=== PATIENT | male | born 1975 | race Caucasian/White ===

== ENCOUNTER 2020-05-22 05:41 | Outpatient (RCR) | payer SELFPAY ==
[~2020-05-22] VITALS: Ht 185 cm; Wt 84.0 kg
[2020-05-23] MEDS ORDERED: LOSA100T57 PO ×2 (12:10)
== END 2020-05-23 12:15 | disposition home or self-care (01) ==
LOC: PREOP 05:41
PROVIDERS: ATTEND Specialist
DX: Z01.812 Encounter for preprocedural laboratory examination (principal); H26.9 Unspecified cataract; Z20.828 Contact with and (suspected) exposure to other viral communicable diseases
CPT/HCPCS: 87635

== ENCOUNTER 2020-05-25 06:04 | Day surgery (SDC) | payer SELFPAY ==
[~2020-05-25] VITALS: Ht 185 cm; Wt 84.0 kg
[~2020-05-25 06:04] MED LIST: LOSA100T57 PO
--- OUTSIDE RECORDS SUMMARY | 2020-05-25 06:08 | XMS REPORT ---
Author Author Woo HERNÁNDEZ [facility] Address [address] [place], [place] [address] Care Team Providers Care Ordnance Technician Name Role Phone MARTÍN HERNÁNDEZ PCP MARTÍN HERNÁNDEZ PreferredProvider Allergies and Adverse Reactions Name Reaction Notes NO KNOWN DRUG ALLERGIES Plan of Treatment Not available. Medications Active Name Start Date Estimated Completion Date SIG Co mments Fioricet 50-325-40 mg oral tablet 02/26/2012 take 1 tablet by oral route every 4 hours as needed not to exceed 6 tablets per 24hrs triamcinolone acetonide 0.1 % topical cream 06/07/2014 apply to affected area(s) by topical route 2 times a day hydroxyzine HCl 25 mg oral tablet 10/09/2014 take 1 tablet (25 mg) by oral route 4 times per day fluticasone 50 mcg/actuation nasal spray,suspension 02/07/2016 inhale 1 spray (50 mcg) in each nostril by intranasal route 2 times per day promethazine-codeine 6.25-10 mg/5 mL oral syrup 12/01/2016 take 5 milliliters by oral route every 4-6 hours as needed, not to exceed 30 mL in 24 hours Name Start Date Expiration Date SIG Comments prednisone 20 mg oral tablet 06/14/2013 06/22/2013 4X2 days 3X2 days 2X2 days 1X2 Days Zithromax Z-Ru 250 mg oral tablet 02/17/2014 02/22/2014 take 2 tablets (500 mg) by oral route once daily for 1 day then 1 tablet (250 mg) by oral route once daily for 4 days prednisone 20 mg oral tablet 10/09/2014 10/17/2014 4x2 days 3x2 days 2x2 days 1x2 days Problem List Description Status Onset Headache Active Arrhythmia Active Granuloma Annulare Active 06/07/2014 Vital Signs Date Time BP-Sys(mm[Hg] BP-Katarina(mm[Hg]) HR(bpm) RR(rpm) Temp WT HT HC BMI BSA BMI Percentile O2 Sat(%) 01/14/2018 1:15:00 PM 148 mmHg 72 mmHg 50 bpm 18 rpm 98.4 F 184 lbs 72 in 24.95 kg/m2 2.06 m2 98 % 12/01/2016 8:14:00 AM 130 mmHg 79 mmHg 78 bpm 18 rpm 98.5 F 182 lbs 72 in 24.6834 kg/m 2.0479 m 97 % 02/07/2016 7:28:00 AM 80 bpm 18 rpm 98 F 172 lbs 71 in 23.99 kg/m2 1.98 m2 98 % 10/09/2014 10:16:00 AM 120 mmHg 72 mmHg 100 bpm 20 rpm 98.6 F 177 lbs 71 in 24.6862 kg/m 2.0055 m 99 % 06/06/2014 3:58:00 PM 132 mmHg 72 mmHg 71 bpm 97.2 F 176.437 lbs 71 i n 24.61 kg/m2 2.00 m2 98 % 02/17/2014 10:46:00 AM 134 mmHg 72 mmHg 76 bpm 20 rpm 96.4 F 172 lbs 72 in 23.3272 kg/m 1.9908 m 98 % 06/14/2013 8:35:00 AM 140 mmHg 68 mmHg 50 bpm 16 rpm 96.9 F 171 lbs 72 in 23.19 kg/m2 1.99 m2 99 % 02/07/2013 4:25:00 PM 120 mmHg 70 mmHg 94 bpm 18 rpm 97 F 175 lbs 72 in 23.734 kg/m 2.0081 m 99 % 01/28/2013 2:45:00 PM 130 mmHg 78 mmHg 98 bpm 16 rpm 98.6 F 175 lbs 72 in 23.73 kg/m2 2.01 m2 99 % 02/26/2012 9:25:00 AM 112 mmHg 64 mmHg 78 bpm 173 lbs 72 in 23.4628 kg/m 1.9966 m 98 % Social History Name Description Comments Tobacco Former smoker Alcohol Use History of Procedures Date Ordered Description Order Status 02/07/2016 12:00 AM Decadron, Per [address] [facility]# [address]-75 Re viewed 02/07/2016 12:00 AM Depo-Medrol, Per [address] [facility]#8455-1052-18 Reviewed 02/07/2016 12:00 AM Rocephin [address] [facility]#2651-1728-25 Reviewe d 02/26/2012 12:00 AM THER/PROPH/DIAG INJ SC/IM Reviewed 02/26/2012 12:00 AM Decadron Inj.1mg-([facility]) [facility] #[id number] 30 Reviewed 02/26/2012 12:00 AM Depo-Medrol 80 Mg Im/St Krzysztof [facility] 0009-34 7501 Reviewed 12/01/2016 12:00 AM THER/PROPH/DIAG INJ SC/IM Reviewed 12/01/2016 12:00 AM Decadron 8mg Injection Reviewed 12/01/2016 12:00 AM Depo-Medrol 80mg Injection Reviewed 12/01/2016 12:00 AM Rocephin 1 gram Injection Reviewed 01/28/2013 12:00 AM RPR S/N/AX/GEN/TRNK 2.5CM/< Reviewed 02/17/2014 12:00 AM THER/PROPH/DIAG INJ SC/IM Reviewed 02/17/2014 12:00 AM Decadron, [address] [facility]# [address]-43 Review ed 02/17/2014 12:00 AM Depo-Medrol, Per [address] [facility]#3373-0755-34 Reviewed 10/09/2014 12:00 AM IMMUNIZATION ADMIN Reviewed 10/09/2014 12:00 AM THER/PROPH/DIAG INJ SC/IM Reviewed 10/09/2014 12:00 AM Decadron, Per [address] [facility]# [address]-10 Re viewed 10/09/2014 12:00 AM Depo-Medrol, Per [address] [facility]#2754-0003-93 Reviewed Results Summary Not available. History Of Immunizations Not available. History of Past Illness Name Date of Onset Comments Headache Arrhythmia Granuloma Annulare 06/07/2014 Headache Feb 26 2012 9:27AM Seasonal Allergies Feb 26 2012 9:27AM Arrhythmia Feb 26 2012 9:27AM Laceration 2nd digit right hand Feb 07 2013 4:12PM Laceration 2nd digit right hand Feb 07 2013 4:11PM Suture Removal Feb 07 2013 4:26PM Pain in foot, right Jun 14 2013 8:36AM Seasonal Allergies Feb 17 2014 10:46AM Respiratory System And Chest Symptoms Feb 17 2014 10:46AM Granuloma annulare Jun 06 2014 3:59PM Urticaria Oct 09 2014 10:17AM Acute pharyngitis, unspecified etiology Feb 07 2016 4:58PM Upper respiratory tract infection, unspecified type Feb 06 016 4:58PM Moderate Acute Nasal congestion Feb 07 2016 4:58PM Mild Acute Cough Dec 01 2016 8:17AM Acute bronchitis, unspecified organism Dec 01 2016 8:17AM Mild Acute Chest congestion Dec 01 2016 8:17AM Shortness of breath on exertion Jan 14 2018 1:16PM Cardiac dysrhythmia, unspecified Jan 14 2018 1:16PM Payers Insurance Name Company Name Plan Name Plan Number Policy Number Raj cy [id number] N/ A History of Encounters Visit Date Visit Type Provider 01/14/2018 Office visit MARTÍN ANDERSEN 12/01/2016 Office visit MARTÍN ANDERSEN 02/07/2016 Office visit MARTÍN ANDERSEN 10/09/2014 Office visit 10/09/2014 Office visit MARTÍN ANDERSEN 06/06/2014 Office visit MARTÍN ANDERSEN 02/17/2014 Office visit MARTÍN ANDERSEN 06/14/2013 Office visit MARTÍN ANDERSEN 02/07/2013 Office visit MARTÍN ANDERSEN 01/28/2013 Office visit MARTÍN ANDERSEN 02/26/2012 Office visit MARTÍN ANDERSEN
--- OUTSIDE RECORDS SUMMARY | 2020-05-25 06:08 | XMS REPORT ---
Author Author Woo HERNÁNDEZ [facility] Address [address] [place], [place] [address] Care Team Providers Care Chronic Specialist Name Role Phone MARTÍN HERNÁNDEZ PCP MARTÍN [...] to exceed 30 mL in 24 hours Bystolic 5 mg oral tablet 02/08/2018 05/09/2018 take 1 tablet (5 mg) by oral route once daily for 30 days Name Start Date Expiration Date SIG Comments [...] Active Arrhythmia Active Granuloma Annulare Active 06/07/2014 Palpitations Active 02/20/2018 Essential hypertension Active 02/20/2018 Vital Signs Date Time BP-Sys(mm[Hg] BP-Katarina(mm[Hg]) HR(bpm) RR(rpm) Temp WT HT HC BMI BSA BMI Percentile O2 Sat(%) 02/16/2018 7:37:00 AM 118 mmHg 70 mmHg 68 bpm 18 rpm 185 lbs 72 in 25.0903 kg/m 2.0647 m 98 % 02/08/2018 2:03:00 PM 152 mmHg 96 mmHg 78 bpm 18 rpm 99.1 F 184 lbs 96 % 01/14/2018 1:15:00 PM 148 mmHg 72 mmHg 50 bpm 18 rpm 98.4 F 184 lbs 72 in 24.9546 kg/m 2.0591 m 98 % 12/01/2016 8:14:00 AM 130 mmHg 79 mmHg 78 bpm 18 rpm 98.5 F 182 lbs 72 in 24.68 kg/m2 2.05 m2 97 % 02/07/2016 7:28:00 AM 80 bpm [...] 02/07/2016 12:00 AM Decadron, Per 1 Mg [facility]# [address]-10 Re viewed 02/07/2016 12:00 AM Depo-Medrol, Per 80 Mg [facility]#0977-6570-42 Reviewed 02/07/2016 12:00 AM Rocephin 1 gram [facility]#9986-7877-41 Reviewe d 02/26/2012 12:00 AM THER/PROPH/DIAG INJ SC/IM Reviewed 02/26/2012 12:00 AM Decadron Inj.1mg-([facility]) [facility] #[id number] 30 Reviewed 02/26/2012 12:00 AM Depo-Medrol 80 Mg Im/[facility] Krz[facility] 0009-34 7501 Reviewed 12/01/2016 12:00 AM THER/PROPH/DIAG INJ SC/IM Reviewed 12/01/2016 12:00 AM Decadron 8mg Injection Reviewed 12/01/2016 12:00 AM Depo-Medrol 80mg Injection Reviewed 12/01/2016 12:00 AM Rocephin 1 gram Injection Reviewed 02/08/2018 12:00 AM ECHO EXAM OF ABDOMEN Returned 02/10/2018 12:00 AM HEPATOBILIARY SYSTEM IMAGING Returned 02/10/2018 12:00 AM ACUTE HEPATITIS PANEL Returned 01/28/2013 12:00 AM RPR S/N/AX/GEN/TRNK 2.5CM/< Reviewed 02/17/2014 12:00 AM THER/PROPH/DIAG INJ SC/IM Reviewed 02/17/2014 12:00 AM Decadron, 8 Mg [facility]# [address]-41 Review ed 02/17/2014 12:00 AM Depo-Medrol, Per 80 Mg [facility]#6981-4904-25 Reviewed 10/09/2014 12:00 AM IMMUNIZATION ADMIN Reviewed 10/09/2014 12:00 AM THER/PROPH/DIAG INJ SC/IM Reviewed 10/09/2014 12:00 AM Decadron, Per 1 Mg [facility]# [address]-35 Re viewed 10/09/2014 12:00 AM Depo-Medrol, Per 80 Mg [facility]#6895-7357-22 Reviewed Results Summary Not available. History Of Immunizations Not available. History of Past Illness Name Date of Onset Comments Headache Arrhythmia Granuloma Annulare 06/07/2014 Palpitations 02/20/2018 Essential hypertension 02/20/2018 Headache Feb 26 2012 9:27AM Seasonal Allergies [...] respiratory tract infection, unspecified type Feb 06 4:58PM Moderate Acute Nasal congestion Feb 07 2016 4:58PM Mild Acute Cough Dec 01 2016 8:17AM Acute bronchitis, unspecified organism Dec 01 2016 8:17AM Mild Acute Chest congestion Dec 01 2016 8:17AM Shortness of breath on exertion Jan 14 2018 1:16PM Cardiac dysrhythmia, unspecified Jan 14 2018 1:16PM Right upper quadrant abdominal pain Feb 08 2018 1:42PM Right upper quadrant abdominal pain Feb 10 2018 3:47PM Essential hypertension Feb 16 2018 4:16PM Palpitations Feb 16 2018 4:16PM Essential hypertension Feb 08 2018 2:03PM Palpitations Feb 08 2018 2:03PM Right upper quadrant pain Feb 08 2018 2:03PM Payers Insurance Name Company Name Plan Name Plan Number Policy Number Raj Group Number Start Date BCBS [facility] [id number] N/ A History of Encounters Visit Date Visit Type Provider 02/16/2018 Office visit MARTÍN ANDERSEN 02/08/2018 Office visit MARTÍN ANDERSEN 01/14/2018 [facility] Aisha Kaba MD 01/14/2018 Office visit MARTÍN ANDERSEN 12/01/2016 Office visit MARTÍN ANDERSEN 02/07/2016 Office visit MARTÍN ANDERSEN 10/09/2014 Office visit 10/09/2014 Office visit MARTÍN ANDERSEN 06/06/2014 Office visit MARTÍN HERNÁNDEZ PA 02/17/2014 Office visit MARTÍN ANDERSEN 06/14/2013 Office visit MARTÍN ANDERSEN 02/07/2013 Office visit MARTÍN HERNÁNDEZ PA 01/28/2013 Office visit MARTÍN ANDERSEN 02/26/2012 Office visit MARTÍN ANDERSEN
--- OUTSIDE RECORDS SUMMARY | 2020-05-25 06:08 | XMS REPORT ---
Author Author Woo HERNÁNDEZ [facility] ou Address [address] [place], [place] [address] Care Team Providers Care Guinea Pig Breeder Name Role Phone MARTÍN HERNÁNDEZ PCP MATRÍN HERNÁNDEZ PreferredProvider Allergies and Adverse Reactions Name Reaction Notes NO KNOWN DRUG ALLERGIES Plan of Treatment Not available. Medications Name Start Date Expiration Date SIG Comments [...] days 3x2 days 2x2 days 1x2 days Bystolic 5 mg oral tablet 02/08/2018 05/09/2018 take 1 tablet (5 mg) by oral route once daily for 30 days Discontinued Name Start Date Discontinued Date SIG Comments Fioricet 50-325-40 mg oral tablet 02/26/2012 03/12/2020 take 1 tablet by oral route every 4 hours as needed not to exceed 6 tablets per 24hrs triamcinolone acetonide 0.1 % topical cream 06/07/20142019 apply to affected area(s) by topical route 2 times a day hydroxyzine HCl 25 mg oral tablet 10/09/2014 03/12/2020 take 1 tablet (25 mg) by oral route 4 times per day fluticasone 50 mcg/actuation nasal spray,suspension 02/07/2016 03/12/2020 inhale 1 spray (50 mcg) in each nostril by intranasal route 2 times per day promethazine-codeine 6.25-10 mg/5 mL oral syrup 12/01/2016 03/12/2020 take 5 milliliters by oral route every 4-6 hours as needed, not to exceed 30 mL in 24 hours Problem List Description Status Onset Headache Active Arrhythmia Active Granuloma Annulare Active 06/07/2014 Palpitations Active 02/20/2018 Essential hypertension Active 02/20/2018 Vital Signs Date Time BP-Sys(mm[Hg] BP-Katarina(mm[Hg]) HR(bpm) RR(rpm) Temp WT HT HC BMI BSA BMI Percentile O2 Sat(%) 03/09/2020 7:36:00 AM 150 mm[Hg] 98 mm[Hg] 86 {beats}/min 16 rpm 98.6 F 187.5 lbs 72 in 25.4293 kg/m2 2.0786 m2 97 % 02/16/2018 7:37:00 AM 118 mm[Hg] 70 mm[Hg] 68 {beats}/min 18 rpm 18 5 lbs 72 in 25.09 kg/m2 2.06 m2 98 % 02/08/2018 2:03:00 PM 152 mm[Hg] 96 mm[Hg] 78 {beats}/min 18 rpm 99.1 F 184 lbs 96 % 01/14/2018 1:15:00 PM 148 mm[Hg] 72 mm[Hg] 50 {beats}/min 18 rpm 98.4 F 184 lbs 72 in 24.95 kg/m2 2.06 m2 98 % 12/01/2016 8:14:00 AM 130 mm[Hg] 79 mm[Hg] 78 {beats}/min 18 rpm 98.5 F 182 lbs 72 in 24.6834 kg/m2 2.0479 m2 97 % 02/07/2016 7:28:00 AM 80 {beats}/min 18 rpm 98 F 172 lbs 71 in 23.99 kg/m2 1.98 m2 98 % 10/09/2014 10:16:00 AM 120 mm[Hg] 72 mm[Hg] 100 {beats}/min 20 rpm 98.6 F 177 lbs 71 in 24.6862 kg/m2 2.0055 m2 99 % 06/06/2014 3:58:00 PM 132 mm[Hg] 72 mm[Hg] 71 {beats}/min 97.2 F 176.437 lbs 71 in 24.61 kg/m2 2.00 m2 98 % 02/17/2014 10:46:00 AM 134 mm[Hg] 72 mm[Hg] 76 {beats}/min 20 rpm 96.4 F 172 lbs 72 in 23.3272 kg/m2 1.9908 m2 98 % 06/14/2013 8:35:00 AM 140 mm[Hg] 68 mm[Hg] 50 {beats}/min 16 rpm 96.9 F 171 lbs 72 in 23.19 kg/m2 1.99 m2 99 % 02/07/2013 4:25:00 PM 120 mm[Hg] 70 mm[Hg] 94 {beats}/min 18 rpm 97 F 175 lbs 72 in 23.734 kg/m2 2.0081 m2 99 % 01/28/2013 2:45:00 PM 130 mm[Hg] 78 mm[Hg] 98 {beats}/min 16 rpm 98.6 F 175 lbs 72 in 23.73 kg/m2 2.01 m2 99 % 02/26/2012 9:25:00 AM 112 mm[Hg] 64 mm[Hg] 78 {beats}/min 173 l bs 72 in 23.4628 kg/m2 1.9966 m2 98 % Social History Name Description Comments Tobacco Former smoker Alcohol Use History of Procedures Date Ordered Description Order Status 02/07/2016 12:00 AM Decadron, Per 1 Mg [facility]# [address]-73 Re viewed 02/07/2016 12:00 AM Depo-Medrol, Per 80 Mg [facility]#5272-3828-75 Reviewed 02/07/2016 12:00 AM Rocephin 1 gram [facility]#5166-7482-44 Reviewe d 02/26/2012 12:00 AM THER/PROPH/DIAG INJ SC/IM Reviewed 02/26/2012 12:00 AM Decadron Inj.1mg-([facility]) [facility] #[id number] 30 Reviewed 02/26/2012 12:00 AM Depo-Medrol 80 Mg Im/St Krzyszto[facility] 0009-34 7501 Reviewed 12/01/2016 12:00 AM THER/PROPH/DIAG [...] Reviewed 02/17/2014 12:00 AM Decadron, 8 Mg [place]# [address]-59 Review ed 02/17/2014 12:00 AM Depo-Medrol, Per 80 Mg [facility]#2354-6865-05 Reviewed 10/09/2014 12:00 AM IMMUNIZATION ADMIN Reviewed 10/09/2014 12:00 AM THER/PROPH/DIAG INJ SC/IM Reviewed 10/09/2014 12:00 AM Decadron, Per 1 Mg [place]# [address]-37 Re viewed 10/09/2014 12:00 AM Depo-Medrol, Per 80 Mg [place]#9269-6193-15 Reviewed Results Summary Not available. History Of [...] respiratory tract infection, unspecified type Feb 06 2 016 4:58PM Moderate Acute Nasal congestion Feb [...] upper quadrant pain Feb 08 2018 2:03PM Viral hepatitis A without hepatic coma Feb 16 2018 4:16PM Fatty liver, alcoholic Feb 16 2018 4:16PM Essential hypertension Mar 09 2020 7:37AM Medication management Mar 09 2020 7:37AM Payers Insurance Name Company Name Plan Name Plan Number Policy Number Raj cy Group Number Start Date BCBS [facility] [id number] N/ A History of Encounters Visit Date Visit Type Provider 03/09/2020 Office visit MARTÍN ANDERSEN 02/16/2018 Office visit MARTÍN ANDERSEN 02/08/2018 Office visit MARTÍN ANDERSEN 01/14/2018 [facility] Marino Kaba MD 01/14/2018 Office visit MARTÍN ANDERSEN 12/01/2016 Office visit MARTÍN ANDERSEN 02/07/2016 Office visit MARTÍN ANDERSEN 10/09/2014 Office visit 10/09/2014 Office visit MARTÍN ANDERSEN 06/06/2014 Office visit MARTÍN ANDERSEN 02/17/2014 Office visit MARTÍN ANDERSEN 06/14/2013 Office visit MARTÍN ANDERSEN 02/07/2013 Office visit MARTÍN ANDERSEN 01/28/2013 Office visit MARTÍN ANDERSEN 02/26/2012 Office visit MARTÍN ANDERSEN
--- OUTSIDE RECORDS SUMMARY | 2020-05-25 06:08 | XMS REPORT ---
Author Author Woo HERNÁNDEZ Organization [facility] Address [address] [place], [place] [address] Care Team Providers Care Racquet Maker Name Role Phone MARTÍN HERNÁNDEZ PCP MARTÍN HERNÁNDEZ PreferredProvider Allergies and Adverse Reactions Name Reaction Notes NO KNOWN DRUG ALLERGIES Plan of Treatment Planned Activity Comments Planned Date Planned Time Plan/Goal [facility] ([facility]) 02/08/2018 12:00 AM Medications Active Name Start Date Estimated Completion [...] 02/07/2016 12:00 AM Decadron, Per 1 Mg [facility]# [address]-70 Re viewed 02/07/2016 12:00 AM Depo-Medrol, Per 80 Mg [facility]#3066-9305-58 Reviewed 02/07/2016 12:00 AM Rocephin 1 gram [facility]#3255-2408-06 Reviewe d 02/26/2012 12:00 AM THER/PROPH/DIAG INJ SC/IM Reviewed 02/26/2012 12:00 AM Decadron Inj.1mg-([facility]) [facility] #[id number] 30 Reviewed 02/26/2012 12:00 AM Depo-Medrol 80 Mg Im/St Krzysz[facility] 0009-34 7501 Reviewed 12/01/2016 12:00 AM THER/PROPH/DIAG INJ SC/IM Reviewed 12/01/2016 12:00 AM Decadron 8mg Injection Reviewed 12/01/2016 12:00 AM Depo-Medrol 80mg Injection Reviewed 12/01/2016 12:00 AM Rocephin 1 gram Injection Reviewed 01/28/2013 12:00 AM RPR S/N/AX/GEN/TRNK 2.5CM/< Reviewed 02/17/2014 12:00 AM THER/PROPH/DIAG INJ SC/IM Reviewed 02/17/2014 12:00 AM Decadron, 8 Mg [facility]# [address]-59 Review ed 02/17/2014 12:00 AM Depo-Medrol, Per 80 Mg [facility]#9597-0813-51 Reviewed 10/09/2014 12:00 AM IMMUNIZATION ADMIN Reviewed 10/09/2014 12:00 AM THER/PROPH/DIAG INJ SC/IM Reviewed 10/09/2014 12:00 AM Decadron, Per 1 Mg [facility]# [address]-63 Re viewed 10/09/2014 12:00 AM Depo-Medrol, Per 80 Mg [facility]#7496-4099-04 Reviewed Results Summary Not available. History Of [...] quadrant abdominal pain Feb 08 2018 1:42PM Payers Insurance Name Company Name Plan Name Plan Number Policy Number Raj cy Group Number Start Date BCBS Bcbs [facility] [id number] N/ A History of Encounters Visit Date Visit Type Provider 02/08/2018 Office visit MARTÍN ANDERSEN 01/14/2018 [facility] Marino Kaba MD 01/14/2018 Office visit MARTÍN ANDERSEN 12/01/2016 Office visit MARTÍN ANDERSEN 02/07/2016 Office visit MARTÍN ANDERSEN 10/09/2014 Office visit 10/09/2014 Office visit MARTÍN ANDERSEN 06/06/2014 Office visit MARTÍN ANDERSEN 02/17/2014 Office visit MARTÍN ANDERSEN 06/14/2013 Office visit MARTÍN ANDERSEN 02/07/2013 Office visit MARTÍN ANDERSEN 01/28/2013 Office visit MARTÍN ANDERSEN 02/26/2012 Office visit MARTÍN ANDERSEN
--- OUTSIDE RECORDS SUMMARY | 2020-05-25 06:09 | XMS REPORT ---
Author Author Woo HERNÁNDEZ [facility] oup Address [address] [place], [place] [address] Care Team Providers Care Labor And Delivery Registered Nurse Name Role Phone MARTÍN HERNÁNDEZ PCP MARTÍN HERNÁNDEZ PreferredProvider Allergies and Adverse Reactions Name Reaction Notes NO KNOWN DRUG ALLERGIES Plan of Treatment Planned Activity Comments Planned Date Planned Time Plan/Goal Hepatobiliary scan 02/10/2018 12:00 AM HEPATITIS A AB 02/10/2018 12:00 AM Medications Active Name Start Date [...] HC BMI BSA BMI Percentile O2 Sat(%) 02/08/2018 2:03:00 PM 152 mmHg 96 mmHg [...] rpm 98 F 172 lbs 71 in 2 3.9889 kg/m 1.9769 m 98 % 10/09/2014 10:16:00 AM 120 mmHg 72 mmHg 100 bpm 20 rpm 98.6 F 177 lbs 71 in 24.69 kg/m2 2.01 m2 99 % 06/06/2014 3:58:00 PM 132 mmHg 72 mmHg 71 bpm 97.2 F 176.437 lbs 71 i n 24.6078 kg/m 2.0023 m 98 % 02/17/2014 10:46:00 AM 134 mmHg 72 mmHg 76 bpm 20 rpm 96.4 F 172 lbs 72 in 23.33 kg/m2 1.99 m2 98 % 06/14/2013 8:35:00 AM 140 mmHg 68 mmHg 50 bpm 16 rpm 96.9 F 171 lbs 72 in 23.1915 kg/m 1.985 m 99 % 02/07/2013 4:25:00 PM 120 mmHg 70 mmHg 94 bpm 18 rpm 97 F 175 lbs 72 in 23.73 kg/m2 2.01 m2 99 % 01/28/2013 2:45:00 PM 130 mmHg 78 mmHg 98 bpm 16 rpm 98.6 F 175 lbs 72 in 23.734 kg/m 2.0081 m 99 % 02/26/2012 9:25:00 AM 112 mmHg 64 mmHg 78 bpm 173 lbs 72 in 23.46 kg/m2 2.00 m2 98 % Social History Name Description Comments Tobacco Former smoker Alcohol Use History of Procedures Date Ordered Description Order Status 02/07/2016 12:00 AM Decadron, Per 1 Mg [facility]# [address]-94 Re viewed 02/07/2016 12:00 AM Depo-Medrol, Per 80 Mg [facility]#1988-37[address]-41 Reviewed 02/07/2016 12:00 AM Rocephin 1 gram [facility]#5946-4033-36 Reviewe d 02/26/2012 12:00 AM THER/PROPH/DIAG INJ SC/IM Reviewed 02/26/2012 12:00 AM Decadron Inj.1mg-(St.K[facility]ys[facility]to[facility]) [facility] #[id number] 30 Reviewed 02/26/2012 12:00 AM Depo-Medrol 80 Mg Im/St Krzyszto[facility] 0009-34 7501 Reviewed 12/01/2016 12:00 AM THER/PROPH/DIAG INJ SC/IM Reviewed 12/01/2016 12:00 AM Decadron 8mg Injection Reviewed 12/01/2016 12:00 AM Depo-Medrol 80mg Injection Reviewed 12/01/2016 12:00 AM Rocephin 1 gram Injection Reviewed 02/08/2018 12:00 AM ECHO EXAM OF ABDOMEN Returned 01/28/2013 12:00 AM RPR S/N/AX/GEN/TRNK 2.5CM/< Reviewed 02/17/2014 12:00 AM THER/PROPH/DIAG INJ SC/IM Reviewed 02/17/2014 12:00 AM Decadron, 8 Mg [facility]# [address]-71 Review ed 02/17/2014 12:00 AM Depo-Medrol, Per 80 Mg [facility]#9795-8531-42 Reviewed 10/09/2014 12:00 AM IMMUNIZATION ADMIN Reviewed 10/09/2014 12:00 AM THER/PROPH/DIAG INJ SC/IM Reviewed 10/09/2014 12:00 AM Decadron, Per 1 Mg [facility]# [address]-00 Re viewed 10/09/2014 12:00 AM Depo-Medrol, Per 80 Mg [facility]#2664-6166-22 Reviewed Results Summary Not available. History Of [...] quadrant abdominal pain Feb 10 2018 3:47PM Payers Insurance Name Company Name Plan Name Plan Number Policy Number Raj cy Group Number Start Date BCBS [facility] [id number] N/ A History of Encounters Visit Date Visit Type Provider 02/08/2018 Office visit MARTÍN ANDERSEN 01/14/2018 [facility] Aisha Kaba MD 01/14/2018 Office [...]
--- OUTSIDE RECORDS SUMMARY | 2020-05-25 06:09 | XMS REPORT ---
Author Author Woo HERNÁNDEZ [facility] oup Address [address] [place], [place] [address] Care Team Providers Care Primary Montessori Teacher Name Role Phone MARTÍN HERNÁNDEZ PCP MARTÍN [...] 02/07/2016 12:00 AM Decadron, Per 1 Mg [facility]# [address]-28 Re viewed 02/07/2016 12:00 AM Depo-Medrol, Per 80 Mg [facility]#5268-8247-21 Reviewed 02/07/2016 12:00 AM Rocephin 1 gram [facility]#0885-9352-42 Reviewe d 02/26/2012 12:00 AM THER/PROPH/DIAG INJ SC/IM Reviewed 02/26/2012 12:00 AM Decadron Inj.1mg-(St[facility]) [facility] #[id number] 30 Reviewed 02/26/2012 12:00 AM Depo-Medrol 80 Mg Im/St Krzysztof [facility] 0009-34 7501 Reviewed 12/01/2016 12:00 AM THER/PROPH/DIAG INJ SC/IM Reviewed 12/01/2016 12:00 AM Decadron 8mg Injection Reviewed 12/01/2016 12:00 AM Depo-Medrol 80mg Injection Reviewed 12/01/2016 12:00 AM Rocephin 1 gram Injection Reviewed 01/28/2013 12:00 AM RPR S/N/AX/GEN/TRNK 2.5CM/< Reviewed 02/17/2014 12:00 AM THER/PROPH/DIAG INJ SC/IM Reviewed 02/17/2014 12:00 AM Decadron, 8 Mg [facility]# [address]-60 Review ed 02/17/2014 12:00 AM Depo-Medrol, Per 80 Mg [facility]#4721-7739-25 Reviewed 10/09/2014 12:00 AM IMMUNIZATION ADMIN Reviewed 10/09/2014 12:00 AM THER/PROPH/DIAG INJ SC/IM Reviewed 10/09/2014 12:00 AM Decadron, Per 1 Mg [facility]# [address]-70 Re viewed 10/09/2014 12:00 AM Depo-Medrol, Per 80 Mg [facility]#9092-5077-36 Reviewed Results Summary Not available. History Of [...] Number [id number]/ A History of Encounters Visit Date [...]
--- OUTSIDE RECORDS SUMMARY | 2020-05-25 06:09 | XMS REPORT ---
Author Author Woo HERNÁNDEZ [facility] Physicians oup Address [address] [place], [place] [address] Care Team Providers Care Senior Branch Manager Name Role Phone MARTÍN HERNÁNDEZ PCP MARTÍN HERNÁNDEZ PreferredProvider Allergies and Adverse Reactions Name Reaction Notes NO KNOWN DRUG ALLERGIES Plan of Treatment Planned Activity Comments Planned Date Planned Time Plan/Goal Hepatobiliary scan 02/10/2018 12:00 AM Hepatitis panel 02/10/2018 12:00 AM Medications Active Name Start [...] F 182 lbs 72 in 24.6834 kg/m 2.05 m2 97 % 02/07/2016 7:28:00 AM [...] 12:00 AM Decadron, Per 1 Mg [facility]# [address]-90 Re viewed 02/07/2016 12:00 AM Depo-Medrol, Per 80 Mg [facility]#3692-3966-48 Reviewed 02/07/2016 12:00 AM Rocephin 1 gram [facility]#9385-9580-43 Reviewe d 02/26/2012 12:00 AM THER/PROPH/DIAG INJ SC/IM Reviewed 02/26/2012 12:00 AM Decadron Inj.1mg-([facility]) [facility] #[id number] 30 Reviewed 02/26/2012 12:00 AM Depo-Medrol 80 Mg Im/St Krzysztof [facility] 0009-34 7501 Reviewed 12/01/2016 12:00 AM THER/PROPH/DIAG INJ SC/IM Reviewed 12/01/2016 12:00 AM Decadron 8mg Injection Reviewed 12/01/2016 12:00 AM Depo-Medrol 80mg Injection Reviewed 12/01/2016 12:00 AM Rocephin 1 gram Injection Reviewed 02/08/2018 12:00 AM ECHO EXAM OF ABDOMEN Returned 01/28/2013 12:00 AM RPR S/N/AX/GEN/TRNK 2.5CM/< Reviewed 02/17/2014 12:00 AM THER/PROPH/DIAG INJ SC/IM Reviewed 02/17/2014 12:00 AM Decadron, 8 Mg [facility]# [address]-86 Review ed 02/17/2014 12:00 AM Depo-Medrol, Per 80 Mg [facility]#6726-2739-95 Reviewed 10/09/2014 12:00 AM IMMUNIZATION ADMIN Reviewed 10/09/2014 12:00 AM THER/PROPH/DIAG INJ SC/IM Reviewed 10/09/2014 12:00 AM Decadron, Per 1 Mg [facility]# [address]-29 Re viewed 10/09/2014 12:00 AM Depo-Medrol, Per 80 Mg [facility]#6107-7903-89 Reviewed Results Summary Not available. History Of [...] Raj cy Group Number Start Date BCBS [facility] [id number] N/ A History of Encounters Visit Date Visit Type Provider 02/08/2018 Office visit MARTÍN ANDERSEN 01/14/2018 [facility] Aihsa Kaba MD 01/14/2018 Office visit MARTÍN ANDERSEN 12/01/2016 Office visit MARTÍN ANDERSEN 02/07/2016 Office visit MARTÍN ANDERSEN 10/09/2014 Office visit 10/09/2014 Office visit MARTÍN ANDERSEN 06/06/2014 Office visit MARTÍN ANDERSEN 02/17/2014 Office visit MARTÍN ANDERSEN 06/14/2013 Office visit MARTÍN ANDERSEN 02/07/2013 Office visit MARTÍN ANDERSEN 01/28/2013 Office visit MARTÍN ANDERSEN 02/26/2012 Office visit MARTÍN ANDERSEN
--- OUTSIDE RECORDS SUMMARY | 2020-05-25 06:09 | XMS REPORT | Continuity of Care Document ---
Author Organization Unknown Address Unknown Phone Unavailable Allergies Active Description Code Type Severity Reaction Onset Reported/Identified Relationship to Patient Clinical Status Yes No Known Drug Allergies [id number] Drug Allergy Unknown N/A 05/23/2020 Medications There is no data. Problems There is no data. Procedures There is no data. Results There is no data. Encounters ACCT No. Visit Date/Time Discharge Status Pt. Type Provider Facility Loc./Unit Complaint [id number] 03/09/2020 08:34:47 03/09/2020 23:59: 59 C[facility] Outpatient MARTÍN HERNÁNDEZ [id number] 02/16/2018 11:32:31 02/16/2018 23:59: 59 CLS Outpatient MARTÍN HERNÁNDEZ [id number] 02/08/2018 11:18:40 02/08/2018 23:59: 59 CLS Outpatient MARTÍN HERNÁNDEZ [id number] 02/08/2018 10:59:47 02/08/2018 23:59: 59 CLS Outpatient MARTÍN HERNÁNDEZ [id number] 01/29/2018 16:10:00 01/29/2018 23:59: 59 CLS Outpatient Aisha Kaba [id number] 01/14/2018 11:30:27 01/14/2018 23:59: 59 CLS Outpatient MARTÍN HERNÁNDEZ [id number] 12/02/2016 08:49:54 12/02/2016 23:59: 59 CLS Outpatient MARTÍN HERNÁNDEZ [id number] 10/09/2014 08:49:00 10/09/2014 23:59: 59 CLS Outpatient MARTÍN HERNÁNDEZ [id number] 06/06/2014 16:49:37 06/06/2014 23:59: 59 CLS Outpatient MARTÍN HERNÁNDEZ [id number] 02/17/2014 09:55:51 02/17/2014 23:59: 59 CLS Outpatient MARTÍN HERNÁNDEZ [id number] 03/21/2019 16:00:00 03/21/2019 23:59: 59 CLS Outpatient PRACHI BANUELOS [facility] [id number] 05/22/2020 05:41:00 020 12:15:00 DIS Outpatient CATHLEEN ROBERSON MD Via [facility] [place] [facility] PREOP CATARACT RIGHT EYE [id number] 06/01/2020 07:30:00 P EN CATHLEEN Johnson MD Via [facility] CATARACT LEFT EYE [id number] 05/25/2020 08:00:00 P EN CATHLEEN Johnson MD Via [facility] CATARACT RIGHT EYE
--- OUTSIDE RECORDS SUMMARY | 2020-05-25 06:09 | XMS REPORT ---
Author Author Woo HERNÁNDEZ [facility] Physicians oup Address [address] [place], [place] [address] Care Team Providers Care Lead Sewage Plant Operator Name Role Phone MARTÍN HERNÁNDEZ PCP MARTÍN [...] 12:00 AM Decadron, Per [address] [facility]# [address]-80 Re viewed 02/07/2016 12:00 AM Depo-Medrol, Per [address] [facility]#8275-0086-40 Reviewed 02/07/2016 12:00 AM Rocephin [address] [facility]#7874-7188-64 Reviewe d 02/26/2012 12:00 AM THER/PROPH/DIAG INJ SC/IM Reviewed 02/26/2012 12:00 AM Decadron Inj.1mg-([facility]) [facility] #[id number] 30 Reviewed 02/26/2012 12:00 AM Depo-Medrol 80 Mg Im/St Krzyszto[facility] 0009-34 7501 Reviewed 12/01/2016 [...] 02/17/2014 12:00 AM Decadron, [address] [facility]# [address]-61 Review ed 02/17/2014 12:00 AM Depo-Medrol, Per [address] [facility]#6545-1864-51 Reviewed 10/09/2014 12:00 AM IMMUNIZATION ADMIN Reviewed 10/09/2014 12:00 AM THER/PROPH/DIAG INJ SC/IM Reviewed 10/09/2014 12:00 AM Decadron, Per [address] [facility]# [address]-16 Re viewed 10/09/2014 12:00 AM Depo-Medrol, Per [address] [facility]#2757-3207-08 Reviewed Results Summary Not available. History Of [...] Fatty liver, alcoholic Feb 16 2018 4:16PM Payers Insurance Name Company Name Plan Name Plan Number Policy Number Raj cy Group Number Start Date BCBS [facility] [id number] N/ A History of Encounters Visit Date Visit Type Provider 02/16/2018 Office visit MARTÍN ANDERSEN 02/08/2018 Office visit MARTÍN ANDERSEN 01/14/2018 [facility] Aisha Kaba MD 01/14/2018 Office visit MARTÍN ANDERSEN 12/01/2016 Office visit MARTÍN ANDERSEN 02/07/2016 Office visit MARTÍN HERNÁNDEZ PA 10/09/2014 Office visit 10/09/2014 Office visit MARTÍN HERNÁNDEZ PA 06/06/2014 Office visit MARTÍN HERNÁNDEZ PA 02/17/2014 Office visit MARTÍN HERNÁNDEZ PA 06/14/2013 Office visit MARTÍN HERNÁNDEZ PA 02/07/2013 Office visit MARTÍN HERNÁNDEZ PA 01/28/2013 Office visit MARTÍN HERNÁNDEZ PA 02/26/2012 Office visit MARTÍN HERNÁNDEZ PA
--- OUTSIDE RECORDS SUMMARY | 2020-05-25 06:09 | XMS REPORT ---
Author Author Woo HERNÁNDEZ [facility] Physicians oup Address [address] [place], [place] [address] Care Team Providers Care Crop Adjuster Name Role Phone MARTÍN HERNÁNDEZ PCP MARTÍN [...] Decadron, Per [address] [facility]# [address]-25 Re viewed 02/07/2016 12:00 AM Depo-Medrol, Per [address] [facility]#8073-4018-38 Reviewed 02/07/2016 12:00 AM Rocephin [address] [facility]#0355-3678-49 Reviewe d 02/26/2012 12:00 AM THER/PROPH/DIAG INJ SC/IM Reviewed 02/26/2012 12:00 AM Decadron Inj.1mg-([facility]) [facility] #[id number] 30 Reviewed 02/26/2012 12:00 AM Depo-Medrol 80 Mg Im/St Krzysztof [facility] 0009-34 7501 Reviewed 12/01/2016 12:00 AM THER/PROPH/DIAG INJ SC/IM Reviewed 12/01/2016 12:00 AM Decadron 8mg Injection Reviewed 12/01/2016 12:00 AM Depo-Medrol 80mg Injection Reviewed 12/01/2016 12:00 AM Rocephin 1 gram Injection Reviewed 01/28/2013 12:00 AM RPR S/N/AX/GEN/TRNK 2.5CM/< Reviewed 02/17/2014 12:00 AM THER/PROPH/DIAG INJ SC/IM Reviewed 02/17/2014 12:00 AM Decadron, [address] [facility]# [address]-91 Review ed 02/17/2014 12:00 AM Depo-Medrol, Per [address] [facility]#4191-1695-33 Reviewed 10/09/2014 12:00 AM IMMUNIZATION ADMIN Reviewed 10/09/2014 12:00 AM THER/PROPH/DIAG INJ SC/IM Reviewed 10/09/2014 12:00 AM Decadron, Per [address] [facility]# [address]-85 Re viewed 10/09/2014 12:00 AM Depo-Medrol, Per [address] [facility]#2838-0730-58 Reviewed Results Summary Not available. History Of [...] Number Raj cy Group Number [id number] N/ A History of Encounters Visit Date [...]
--- OUTSIDE RECORDS SUMMARY | 2020-05-25 06:09 | XMS REPORT ---
Author Author Woo HERNÁNDEZ Organization [facility] Physicians oup Address [address] [place], [place] [address] Care Team Providers Care Research Methods Instructor Name Role Phone MARTÍN HERNÁNDEZ PCP Unavailable Allergies and Adverse Reactions Name Reaction Notes [...] HC BMI BSA BMI Percentile O2 Sat(%) 12/01/2016 8:14:00 AM 130 mmHg 79 mmHg [...] 02/07/2016 12:00 AM Decadron, Per [address] [facility]# [address]-16 Re viewed 02/07/2016 12:00 AM Depo-Medrol, Per [address] [facility]#9682-7561-67 Reviewed 02/07/2016 12:00 AM Rocephin [address] [facility]#6122-5797-25 Reviewe d 02/26/2012 12:00 AM THER/PROPH/DIAG INJ SC/IM Reviewed 02/26/2012 12:00 AM Decadron Inj.1mg-([facility]) [facility] #[id number] 30 Reviewed 02/26/2012 12:00 AM Depo-Medrol 80 Mg Im/St Kr[facility]yszto[facility] 0009-34 7501 Reviewed 12/01/2016 12:00 AM THER/PROPH/DIAG INJ SC/IM Reviewed 12/01/2016 12:00 AM Decadron 8mg Injection Reviewed 12/01/2016 12:00 AM Depo-Medrol 80mg Injection Reviewed 12/01/2016 12:00 AM Rocephin 1 gram Injection Reviewed 01/28/2013 12:00 AM RPR S/N/AX/GEN/TRNK 2.5CM/< Reviewed 02/17/2014 12:00 AM THER/PROPH/DIAG INJ SC/IM Reviewed 02/17/2014 12:00 AM Decadron, [address] [facility]# [address]-79 Review ed 02/17/2014 12:00 AM Depo-Medrol, Per [address] [facility]#6787-1073-63 Reviewed 10/09/2014 12:00 AM IMMUNIZATION ADMIN Reviewed 10/09/2014 12:00 AM THER/PROPH/DIAG INJ SC/IM Reviewed 10/09/2014 12:00 AM Decadron, Per [address] [facility]# [address]-82 Re viewed 10/09/2014 12:00 AM Depo-Medrol, Per [address] [facility]#1752-5633-02 Reviewed Results Summary Not available. History Of [...] Acute Chest congestion Dec 01 2016 8:17AM Payers Insurance Name Company Name Plan Name Plan Number Policy Number Raj cy Group Number Start Date [facility] [id number] N/ A History of Encounters Visit Date Visit Type Provider 12/01/2016 Office visit MARTÍN ANDERSEN 02/07/2016 Office visit MARTÍN ANDERSEN 10/09/2014 Office visit 10/09/2014 Office visit MARTÍN ANDERSEN 06/06/2014 Office visit MARTÍN ANDERSEN 02/17/2014 Office visit MARTÍN ANDERSEN 06/14/2013 Office visit MARTÍN ANDERSEN 02/07/2013 Office visit MARTÍN ANDERSEN 01/28/2013 Office visit MARTÍN ANDERSEN 02/26/2012 Office visit MARTÍN ANDERSEN
--- OUTSIDE RECORDS SUMMARY | 2020-05-25 06:09 | XMS REPORT ---
Author Author Woo HERNÁNDEZ [facility] Physicians oup Address [address] [place], [place] [address] Care Team Providers Care Car Body Mechanic Name Role Phone MARTÍN HERNÁNDEZ PCP Unavailable [...] by intranasal route 2 times per day Name Start Date Expiration Date SIG Comments [...] HC BMI BSA BMI Percentile O2 Sat(%) 02/07/2016 7:28:00 AM 80 bpm 18 rpm [...] F 175 lbs 72 in 23.73 kg/m2 2.0081 m 99 % 01/28/2013 2:45:00 PM 130 mmHg 78 mmHg 98 bpm 16 rpm 98.6 F 175 lbs 72 in 23.734 kg/m 2.01 m2 99 % 02/26/2012 9:25:00 AM 112 mmHg 64 mmHg 78 bpm 173 lbs 72 in 23.46 kg/m2 1.9966 m 98 % Social History Name Description Comments Tobacco Former smoker Alcohol Use History of Procedures Date Ordered Description Order Status 02/26/2012 12:00 AM THER/PROPH/DIAG INJ SC/IM Reviewed 02/26/2012 12:00 AM Decadron Inj.1mg-(St[facility]) [facility] #[id number] 30 Reviewed 02/26/2012 12:00 AM Depo-Medrol 80 Mg Im/St Krzyszto[facility] 0009-34 7501 Reviewed 01/28/2013 12:00 AM RPR S/N/AX/GEN/TRNK 2.5CM/< Reviewed 02/17/2014 12:00 AM THER/PROPH/DIAG INJ SC/IM Reviewed 02/17/2014 12:00 AM Decadron, 8 Mg [facility]# [address]-34 Review ed 02/17/2014 12:00 AM Depo-Medrol, Per 80 Mg [facility]#7658-5072-39 Reviewed 10/09/2014 12:00 AM IMMUNIZATION ADMIN Reviewed 10/09/2014 12:00 AM THER/PROPH/DIAG INJ SC/IM Reviewed 10/09/2014 12:00 AM Decadron, Per 1 Mg [facility]# [address]-24 Re viewed 10/09/2014 12:00 AM Depo-Medrol, Per 80 Mg [facility]#0467-2824-72 Reviewed Results Summary Not available. History Of [...] Acute Nasal congestion Feb 07 2016 4:58PM Payers Insurance Name Company Name Plan Name Plan Number Policy Number Raj Group Number Start Date BCBS [facility] [id number] N/ A History of Encounters Visit Date Visit Type Provider 02/07/2016 Office visit MARTÍN ANDERSEN 10/09/2014 Office visit 10/09/2014 Office visit MARTÍN ANDERSEN 06/06/2014 Office visit MARTÍN ANDERSEN 02/17/2014 Office visit MARTÍN ANDERSEN 06/14/2013 Office visit MARTÍN ANDERSEN 02/07/2013 Office visit MARTÍN ANDERSEN 01/28/2013 Office visit MARTÍN ANDERSEN 02/26/2012 Office visit MARTÍN ANDERSEN
--- OUTSIDE RECORDS SUMMARY | 2020-05-25 06:09 | XMS REPORT ---
Author Author Woo HERNÁNDEZ [facility] Physicians oup Address [address] [place], [place] [address] Care Team Providers Care Jet Pilot Name Role Phone MARTÍN HERNÁNDEZ PCP MARTÍN [...] 1 Mg [facility]# [address]-26 Re viewed 02/07/2016 12:00 AM Depo-Medrol, Per 80 Mg [facility]#7449-2704-33 Reviewed 02/07/2016 12:00 AM Rocephin 1 gram [facility]#7695-4858-55 Reviewe d 02/26/2012 12:00 AM THER/PROPH/DIAG INJ SC/IM Reviewed 02/26/2012 12:00 AM Decadron Inj.1mg-(St[facility]ys[facility]) [facility] #[id number] 30 Reviewed 02/26/2012 12:00 AM Depo-Medrol 80 [...] 8 Mg [facility]# [address]-39 Review ed 02/17/2014 12:00 AM Depo-Medrol, Per 80 Mg [facility]#2626-3832-87 Reviewed 10/09/2014 12:00 AM IMMUNIZATION ADMIN Reviewed 10/09/2014 12:00 AM THER/PROPH/DIAG INJ SC/IM Reviewed 10/09/2014 12:00 AM Decadron, Per 1 Mg [facility]# [address]-64 Re viewed 10/09/2014 12:00 AM Depo-Medrol, Per 80 Mg [facility]#5715-6268-79 Reviewed Results Summary Not available. History Of [...] 2018 4:16PM Palpitations Feb 16 2018 4:16PM Payers Insurance Name Company Name Plan Name Plan Number Policy Number Raj Group Number Start Date [facility] [id number] N/ A History of Encounters Visit Date Visit Type Provider 02/16/2018 Office visit MARTÍN ANDERSEN 02/08/2018 Office visit MARTÍN ANDERSEN 01/14/2018 Hospital Aisha Kaba MD 01/14/2018 Office visit MARTÍN ANDERSEN 12/01/2016 Office visit MARTÍN ANDERSEN 02/07/2016 Office visit AMRTÍN ANDERSEN 10/09/2014 Office visit 10/09/2014 Office visit MARTÍN ANDERSEN 06/06/2014 Office visit MARTÍN ANDERSEN 02/17/2014 Office visit MARTÍN ANDERSEN 06/14/2013 Office visit MARTÍN ANDERSEN 02/07/2013 Office visit MARTÍN ANDERSEN 01/28/2013 Office visit MARTÍN ANDERSEN 02/26/2012 Office visit MARTÍN ANDERSEN
[2020-05-25] MEDS ORDERED: MOXIFLOXACIN OPHTH SOLN 5 MG/ML 0.3 ML SYRINGE OP ONE (06:15)
[2020-05-25] MEDS ORDERED: POVIDONE (BETADINE) OPHTH SOLN 5% 30 ML OP ONE (06:15)
[2020-05-25] MEDS ORDERED: LIDOCAINE PF 1% 2 ML VIAL IR PRN (06:15)
[2020-05-25] MEDS ORDERED: TIMOLOL MALEATE 0.5% 5 ML (TIMOPTIC) BTL OU PRN (06:15)
[2020-05-25 06:23] VITALS: BP 120/79
[2020-05-25] MEDS: TETRACAINE 0.5% OPHTH SOLN 4 ML BTL (SINGLE DOSE ONLY) OU PRN ×4 (06:25→06:53)
[2020-05-25] MEDS: PHENYLEPHRINE 10% OPHTH (NEO-SYN) 5 ML BTL OU SCH ×3 (06:36→06:53)
[2020-05-25] MEDS: CYCLOPENTOLATE 1% (CYCLOGYL) 2 ML DROPS OP SCH ×3 (06:37→06:53)
[2020-05-25] MEDS ORDERED: MIDAZOLAM 2 MG/2 ML (VERSED) VIAL ONE (06:38)
--- NOTE | 2020-05-25 07:37 | Ophthalmologist Pre-Op Note ---
Pre-Operative Progress Note H&P Reviewed The H&P was reviewed, patient examined and no changes noted. Date H&P Reviewed: May 25, 2020 Time H&P Reviewed: 07:37 Pre-Op Dx Cataract, Right Eye CATHLEEN ROBERSON MD May 25, 2020 07:37
[2020-05-25] MEDS ORDERED: acetaZOLAMIDE ER 500 MG CAP (DIAMOX SEQUELS) PO ONE (08:00)
--- NOTE | 2020-05-25 08:06 | Ophthalmology Operative Report ---
Cataract removal/placement IOL PREOPERATIVE DIAGNOSIS: Cataract Right Eye POSTOPERATIVE DIAGNOSIS: Cataract Right Eye PROCEDURE: Cataract removal and placement of posterior chamber implant, right eye SURGEON: Aj Roberson ANESTHESIA: Topical with sedation COMPLICATIONS: None ESTIMATED BLOOD LOSS: Minimal DESCRIPTION OF PROCEDURE: After proper informed consent was obtained, the patient, a 44 male, was taken to the Operating Room and the right eye was anesthetized with tetracaine. The right eye was then prepped and draped in the usual manner. A wire lid speculum was placed. A paracentesis was made at the left hand position. Preservative free lidocaine was injected into the anterior chamber followed by viscoelastic. A clear corneal incision was made in the temporal position. A capsulorrhexis was preformed and the central nuclear and cortical material were removed. The posterior capsule was polished and Gonzalo 16.0 [id number] IOL was placed into the capsular bag. The residual viscoelastic was aspirated and balanced saline solution was injected into the anterior chamber. Moxifloxacin was injected into the anterior chamber. The wound was checked and found to be water tight. The patient tolerated the procedure well without complications. AJ ROBERSON MD May 25, 2020 08:06
[2020-05-25 08:14] VITALS: BP 123/85
== END 2020-05-25 08:14 | disposition home or self-care (01) ==
LOC: SDC 06:04
PROVIDERS: ATTEND Specialist
DX: H25.11 Age-related nuclear cataract, right eye (principal); I10 Essential (primary) hypertension; Z79.899 Other long term (current) drug therapy
CPT/HCPCS: 66984; V2632

== ENCOUNTER 2020-05-29 05:40 | Outpatient (RCR) | payer SELFPAY ==
[~2020-05-29] VITALS: Ht 185 cm; Wt 84.0 kg
--- NOTE | 2020-05-29 07:20 | Anesthesia-General Post-Op ---
MAC Significant Intra-Op Events Notes addendum 05-25-20 at 0815 Patient Condition Mental Status/LOC: Same as Preop Cardiovascular: Satisfactory Nausea/Vomiting: Absent Respiratory: Satisfactory Pain: Controlled Complications: Absent Post Op Complications Complications None Follow Up Care/Instructions Patient Instructions None needed. Anesthesiology Discharge Order Discharge Order Patient is doing well, no complaints, stable vital signs, no apparent adverse anesthesia problems. No complications reported per nursing. JSESICA ROSALES CRNA May 29, 2020 07:20
== END 2020-05-29 13:29 | disposition home or self-care (01) ==
LOC: PREOP 05:40
PROVIDERS: ATTEND Specialist
DX: Z01.812 Encounter for preprocedural laboratory examination (principal); H26.9 Unspecified cataract; Z20.828 Contact with and (suspected) exposure to other viral communicable diseases
CPT/HCPCS: 87635

== ENCOUNTER 2020-06-01 06:00 | Day surgery (SDC) | payer SELFPAY ==
[~2020-06-01] VITALS: Ht 185 cm; Wt 84.0 kg
[2020-06-01 06:00] VITALS: BP 111/69
--- OUTSIDE RECORDS SUMMARY | 2020-06-01 06:10 | XMS REPORT | Continuity of Care Document ---
Author Organization Unknown Address Unknown Phone Unavailable Allergies Active Description Code Type Severity Reaction Onset Reported/Identified Relationship to Patient Clinical Status Yes No Known Drug Allergies [id number] Drug Allergy Unknown N/A 05/23/2020 Medications There is no data. Problems Date Dx Coded Attending Type Code Diagnosis Diagnosed By 10/08/1214 CATHLEEN ROBERSON MD, Ot H26 .9 UNSPECIFIED CATARACT 10/08/1214 CATHLEEN ROBERSON MD, Ot Z01.812 ENCOUNTER FOR PREPROCEDURAL LABORATORY E 10/08/1214 CATHLEEN ROBERSON MD, Ot Z20.828 CONTACT W AND EXPOSURE TO OTH VIRAL COMM 05/25/2020 CATHLEEN ROBERSON MD Ot H25.11 AGE-RELATED NUCLEAR CATARACT, RIGHT EYE 05/25/2020 CATHLEEN ROBERSON MD Ot I10 ESSENTIAL (PRIMARY) HYPERTENSION 05/25/2020 CATHLEEN ROBERSON MD Ot Z79.899 OTHER [facility] (CURRENT) DRUG THERAPY 05/28/2020 CATHLEEN ROBERSON MD Ot H25.11 AGE-RELATED NUCLEAR CATARACT, RIGHT EYE 05/28/2020 CATHLEEN ROBERSON MD Ot I10 ESSENTIAL (PRIMARY) HYPERTENSION 05/28/2020 CATHLEEN ROBERSON MD Ot Z79.899 OTHER RE[facility]USE [facility]OR (CURRENT) DRUG THERAPY Procedures There is no data. Results Test Result Range Coronavirus SARS-CoV-2 SO 2018 0 07:55 Coronavirus Ab [Units/volume] in Serum Negative Negative Encounters ACCT No. Visit Date/Time Discharge Status Pt. Type Provider Facility Loc./Unit Complaint [id number] 03/09/2020 08:34:47 03/09/2020 23:59: 59 [facility] Outpatient MARTÍN HERNÁNDEZ [id number] 02/16/2018 11:32:31 02/16/2018 23:59: 59 [facility] Outpatient MARTÍN HERNÁNDEZ [id number] 02/08/2018 11:18:40 02/08/2018 23:59: 59 [facility] Outpatient MARTÍN HERNÁNDEZ Aisha [id number] 02/08/2018 10:59:47 02/08/2018 23:59: 59 [facility] Outpatient MARTÍN HERNÁNDEZ Aisha [id number] 01/29/2018 16:10:00 01/29/2018 23:59: 59 [facility] Outpatient Aisha Kaba [id number] 01/14/2018 11:30:27 01/14/2018 23:59: 59 C[facility] Outpatient MARTÍN HERNÁNDEZ Aisha [id number] 12/02/2016 08:49:54 12/02/2016 23:59: 59 CLS Outpatient MARTÍN HERNÁNDEZ Aisha [id number] 10/09/2014 08:49:00 10/09/2014 23:59: 59 CLS Outpatient MARTÍN HERNÁNDEZ Aisha [id number] 06/06/2014 16:49:37 06/06/2014 23:59: 59 CLS Outpatient MARTÍN HERNÁNDEZ Aisha [id number] 02/17/2014 09:55:51 02/17/2014 23:59: 59 CLS Outpatient MARTÍN HERNÁNDEZ Aisha [id number] 03/21/2019 16:00:00 03/21/2019 23:59: 59 CLS Outpatient [facility] [id number] 05/29/2020 05:40:00 13:29:00 DIS Outpatient CTAHLEEN ROBERSON MD Via [facility] PREOP CATARACT LEFT EYE [id number] 05/25/2020 06:04:00 08:14:00 DIS Outpatient CATHLEEN ROBERSON MD Via [facility] CATARACT RIGHT EYE [id number] 05/22/2020 05:41:00 020 12:15:00 DIS Outpatient CATHLEEN ROBERSON MD Via [facility] PREOP CATARACT RIGHT EYE [id number] 06/01/2020 07:30:00 P EN Preadmit CATHLEEN ROBERSON MD Via [facility] CATARACT LEFT EYE
[2020-06-01] MEDS: TETRACAINE 0.5% OPHTH SOLN 4 ML BTL (SINGLE DOSE ONLY) OU PRN ×4 (06:12→06:40)
[2020-06-01] MEDS ORDERED: POVIDONE (BETADINE) OPHTH SOLN 5% 30 ML OP ONE (06:15)
[2020-06-01] MEDS ORDERED: TIMOLOL MALEATE 0.5% 5 ML (TIMOPTIC) BTL OU PRN (06:15)
[2020-06-01] MEDS ORDERED: LIDOCAINE PF 1% 2 ML VIAL IR PRN (06:15)
[2020-06-01] MEDS ORDERED: MOXIFLOXACIN OPHTH SOLN 5 MG/ML 0.3 ML SYRINGE OP ONE (06:15)
[2020-06-01] MEDS: PHENYLEPHRINE 10% OPHTH (NEO-SYN) 5 ML BTL OU SCH ×3 (06:25→06:40)
[2020-06-01] MEDS: CYCLOPENTOLATE 1% (CYCLOGYL) 2 ML DROPS OP SCH ×3 (06:25→06:40)
[2020-06-01] MEDS ORDERED: MIDAZOLAM 2 MG/2 ML (VERSED) VIAL ONE (06:55)
--- NOTE | 2020-06-01 07:04 | Ophthalmologist Pre-Op Note ---
Pre-Operative Progress Note H&P Reviewed The H&P was reviewed, patient examined and no changes noted. Date H&P Reviewed: Jun 01, 2020 Time H&P Reviewed: 07:04 Pre-Op Dx Cataract, Left Eye CATHLEEN ROBERSON MD Jun 01, 2020 07:04
--- NOTE | 2020-06-01 07:29 | Ophthalmology Operative Report ---
Cataract removal/placement IOL PREOPERATIVE DIAGNOSIS: Cataract Left Eye POSTOPERATIVE DIAGNOSIS: Cataract Left Eye PROCEDURE: Cataract removal and placement of posterior chamber implant, left eye SURGEON: Aj Roberson ANESTHESIA: Topical with sedation COMPLICATIONS: None ESTIMATED BLOOD LOSS: Minimal DESCRIPTION OF PROCEDURE: After proper informed consent was obtained, the patient, a 44 male, was taken to the Operating Room and the left eye was anesthetized with tetracaine. The left eye was then prepped and draped in the usual manner. A wire lid speculum was placed. A paracentesis was made at the left hand position. Preservative free lidocaine was injected into the anterior chamber followed by viscoelastic. A clear corneal incision was made in the temporal position. A capsulorrhexis was preformed and the central nuclear and cortical material were removed. The posterior capsule was polished and an Gonzalo AU00T0 was placed into the capsular bag. The residual viscoelastic was aspirated and balanced saline solution was injected into the anterior chamber. Moxifloxacin was injected into the anterior chamber. The wound was checked and found to be water tight. The patient tolerated the procedure well without complications. AJ ROBERSON MD Jun 01, 2020 07:29
[2020-06-01 07:30] VITALS: BP 143/102
[2020-06-01] MEDS ORDERED: acetaZOLAMIDE ER 500 MG CAP (DIAMOX SEQUELS) PO ONE (07:30)
--- NOTE | 2020-06-01 12:24 | Anesthesia-General Post-Op ---
MAC Patient Condition Mental Status/LOC: Same as Preop Cardiovascular: Satisfactory Nausea/Vomiting: Absent Respiratory: Satisfactory Pain: Controlled Complications: Absent Post Op Complications Complications None Follow Up Care/Instructions Patient Instructions None needed. Anesthesiology Discharge Order Discharge Order Patient is doing well, no complaints, stable vital signs, no apparent adverse anesthesia problems. No complications reported per nursing. JESSICA ROSALES CRNA Jun 01, 2020 12:24
== END 2020-06-01 07:30 | disposition home or self-care (01) ==
LOC: SDC 06:00
PROVIDERS: ATTEND Specialist
DX: H25.12 Age-related nuclear cataract, left eye (principal); I10 Essential (primary) hypertension; Z79.899 Other long term (current) drug therapy; Z80.42 Family history of malignant neoplasm of prostate
CPT/HCPCS: 66984; V2632

== ENCOUNTER 2020-10-02 18:11 | Emergency (ER) | payer BC, OTHER ==
[~2020-10-02] VITALS: Ht 182 cm; Wt 90.7 kg
--- NOTE | 2020-10-02 18:21 | ED General ---
General Stated Complaint: ARRHYTHMIA Source of Information: Patient Exam Limitations: No Limitations History of Present Illness Date Seen by Provider: Oct 02, 2020 Time Seen by Provider: 18:18 Initial Comments To ER per private vehicle from [facility] urgent care. He initially presented to [facility] department for routine work physical at which point he was noted to have an irregular pulse on clinical exam. He was referred to [facility] urgent care where he was found to have sinus rhythm with frequent PVCs. He believes his father had a heart attack in his 50s. He does not have any personal history of heart disease. No chest pain or shortness of breath or weakness and states that he feels perfectly fine. He does drink about a sixpack of beer daily. Timing/Duration: 1-2 Days Severity: Moderate Allergies and Home Medications Allergies Coded Allergies: No Known Drug Allergies (Unverified , 05/23/20) Home Medications Losartan Potassium 100 Mg Tablet, 100 MG PO DAILY, (Reported) Patient Home Medication List Home Medication List Reviewed: Yes Review of Systems Review of Systems Constitutional: see HPI EENTM: see HPI Respiratory: no symptoms reported Cardiovascular: palpitations (occasional palpitations tho none currently) Genitourinary: no symptoms reported Musculoskeletal: no symptoms reported Skin: no symptoms reported Psychiatric/Neurological: No Symptoms Reported Hematologic/Lymphatic: No Symptoms Reported Past [id number] Hx Patient Social History Recent Foreign Travel: No Contact w/Someone Who Travel: No Physical Exam Vital Signs Vital Signs - First Documented 10/02/20 18:16 Temp 37.2 Pulse 46 Resp 18 B/P (MAP) 175/113 (133) Pulse Ox 98 O2 Delivery Room Air Capillary Refill : Height, Weight, BMI Height: '" Weight: lbs. oz. kg; BMI Method: General Appearance: No Apparent Distress, WD/WN, Other (Alert and oriented, pleasant) Eyes: Bilateral Eye Normal Inspection, Bilateral Eye PERRL, Bilateral Eye EOMI Neck: Full Range of Motion, Normal Inspection Respiratory: No Accessory Muscle Use, No Respiratory Distress Cardiovascular: Other (Bradycardia with a pulse of about 44, rhythm appears to be ventricular bigeminy with normal duration beat followed by wide qrs complex every other beat. ) Gastrointestinal: Non Tender, Soft Neurologic/Psychiatric: Alert, Oriented x3 Skin: Normal Color, Warm/Dry Progress/Results/Core Measures Suspected Sepsis SIRS Temperature: Pulse: Respiratory Rate: Laboratory Tests 10/02/20 18:45: White Blood Count 5.2 Blood Pressure / Mean: Laboratory Tests 10/02/20 18:45: Creatinine 0.91, INR Comment 0.9, Platelet Count 162, Total Bilirubin 0.8 Results/Orders Lab Results Laboratory Tests Test 10/02/20 18:45 Range/Units White Blood Count 5.2 4.3-11.0 10^3/uL Red Blood Count 5.14 4.30-5.52 10^6/uL Hemoglobin 16.3 13.3-17.7 g/dL Hematocrit 48 40-54 % Mean Corpuscular Volume 94 80-99 fL Mean Corpuscular Hemoglobin 32 25-34 pg Mean Corpuscular Hemoglobin Concent 34 32-36 g/dL Red Cell Distribution Width 12.0 10.0-14.5 % Platelet Count 162 130-400 10^3/uL Mean Platelet Volume 10.9 9.0-12.2 fL Immature Granulocyte % (Auto) 0 % Neutrophils (%) (Auto) 61 42-75 % Lymphocytes (%) (Auto) 25 12-44 % Monocytes (%) (Auto) 12 0-12 % Eosinophils (%) (Auto) 1 0-10 % Basophils (%) (Auto) 1 0-10 % Neutrophils # (Auto) 3.2 1.8-7.8 10^3/uL Lymphocytes # (Auto) 1.3 1.0-4.0 10^3/uL Monocytes # (Auto) 0.6 0.0-1.0 10^3/uL Eosinophils # (Auto) 0.1 0.0-0.3 10^3/uL Basophils # (Auto) 0.0 0.0-0.1 10^3/uL Immature Granulocyte # (Auto) 0.0 0.0-0.1 10^3/uL Prothrombin Time 12.9 12.2-14.7 SEC INR Comment 0.9 0.8-1.4 Sodium Level 141 135-145 MMOL/L Potassium Level 3.8 3.6-5.0 MMOL/L Chloride Level 107 98-107 MMOL/L Carbon Dioxide Level 22 21-32 MMOL/L Anion Gap 12 5-14 MMOL/L Blood Urea Nitrogen 15 7-18 MG/DL Creatinine 0.91 0.60-1.30 MG/DL Estimat Glomerular Filtration Rate > 60 BUN/Creatinine Ratio 16 Glucose Level 95 70-105 MG/DL Calcium Level 8.9 8.5-10.1 MG/DL Corrected Calcium 8.7 8.5-10.1 MG/DL Magnesium Level 1.9 1.6-2.4 MG/DL Total Bilirubin 0.8 0.1-1.0 MG/DL Aspartate Amino Transf (AST/SGOT) 55 H 5-34 U/L Alanine Aminotransferase (ALT/SGPT) 132 H 0-55 U/L Alkaline Phosphatase 86 40-136 U/L Troponin I < 0.028 <0.028 NG/ML B-Type Natriuretic Peptide 67.3 <100.0 PG/ML Total Protein 7.0 6.4-8.2 GM/DL Albumin 4.2 3.2-4.5 GM/DL Thyroid Stimulating Hormone (TSH) 1.47 0.35-4.94 UIU/ML Serum Alcohol 11 H <10 MG/DL My Orders Orders - YAJAIRA BANKS APRN Cbc With Automated Diff (10/02/20 18:14) Comprehensive Metabolic Panel (10/02/20 18:14) Ekg Tracing (10/02/20 18:14) Troponin I (10/02/20 18:14) Magnesium (10/02/20 18:14) Thyroid Stimulating Hormone (10/02/20 18:14) Triiodothryonine T3 Free (10/02/20 18:14) Ed Iv/Invasive Line Start (10/02/20 18:14) Chest 1 View, Ap/Pa Only (10/02/20 18:14) BNP (10/02/20 18:14) Alcohol (10/02/20 18:17) Protime With Inr (10/02/20 18:17) Metoprolol Tartrate Injection (Lopressor (10/02/20 18:30) Metoprolol Tartrate Injection (Lopressor (10/02/20 19:00) Medications Given in ED Current Medications Medications Dose Ordered Sig/Aj Route Start Time Stop Time Status Last Admin Dose Admin Metoprolol Tartrate 5 mg ONCE ONCE IV 10/02/20 18:30 10/02/20 18:31 DC 10/02/20 18:31 5 MG Metoprolol Tartrate 5 mg ONCE ONCE IV 10/02/20 19:00 10/02/20 19:01 DC 10/02/20 19:03 5 MG Vital Signs/I&O 10/02/20 18:16 Temp 37.2 Pulse 46 Resp 18 B/P (MAP) 175/113 (133) Pulse Ox 98 O2 Delivery Room Air Capillary Refill : Departure Communication (Admissions) Family Conversation [id number] discussed the case with Dr. Green on-call for cardiology. The patient has less frequent PVCs but still quite frequent. However he does not qualify as bigeminy anymore, now trigeminy. Blood pressure 167/97. Heart rate 75. Continues to feel fine. Will stop the losartan per Dr. Lira's recommendation and start Toprol-XL 25 mg daily and he will see the patient later this week. NAME: YOANNA WHITE [facility] REC#: [id number] PT STATUS: REG ER : 1975 PHYSICIAN: YAJAIRA BANKS APRN ADMIT DATE: 10/02/20/ER Draft Date of Exam:10/02/20 CHEST 1 VIEW, AP/PA ONLY Portable erect AP chest at 703 hours. INDICATION: Palpitations. There are no prior studies available for comparison. FINDINGS: The heart size is within normal limits. The perihilar markings are somewhat prominent but there is no evidence for failure, pneumonia or for pleural effusion. The mediastinum is not widened. The osseous structures are intact. IMPRESSION: There is no evidence for active disease. Dictated on workstation # [id number] Dict: 10/02/201927 Trans: 10/02/201930 [id number] Interpreted by: THI AGUDELO MD Electronically signed by: Impression Primary Impression: Ventricular bigeminy Disposition: HOME, SELF-CARE Condition: Stable Departure-Patient Inst. Decision time for Depature: 19:45 Referrals: SHOBHA GREEN MD NO,LOCAL PHYSICIAN (PCP) Primary Care Physician Patient Instructions: Arrhythmias (DC) Add. Discharge Instructions: 1. Stop the losartan. Start the new blood pressure medication called metoprolol. Take this daily. Return to ER for any worsening. Call Dr. Gaitan office tomorrow to make an appointment to be seen this week. Scripts Metoprolol Succinate (Toprol Xl) 25 Mg Tab.er.24h 25 MG PO DAILY, #30 TAB Prov: YAJIARA BANKS APRN 10/02/20 Copy Copies To 1: SHOBHA GREEN MD, PETER J APRN Oct 02, 2020 18:21
[2020-10-02] MEDS ORDERED: meTOprolol 5 MG/5 ML (LOPRESSOR) VIAL IV ONE ×2 (18:30→19:00)
[2020-10-02 18:51] LABS: BASOPHILS % (AUTO) 1 % (0-10); EOSINOPHILS # (AUTO) 0.1 10^3/uL (0.0-0.3); EOSINOPHILS % (AUTO) 1 % (0-10); HEMATOCRIT 48 % (40-54); HEMOGLOBIN 16.3 g/dL (13.3-17.7); LYMPHOCYTES # (AUTO) 1.3 10^3/uL (1.0-4.0); LYMPHOCYTES % (AUTO) 25 % (12-44); MEAN CORPUSCULAR HEMOGLOBIN 32 pg (25-34); MEAN CORPUSCULAR HGB CONC 34 g/dL (32-36); MEAN CORPUSCULAR VOLUME 94 fL (80-99); MEAN PLATELET VOLUME 10.9 fL (9.0-12.2); MONOCYTES # (AUTO) 0.6 10^3/uL (0.0-1.0); MONOCYTES % (AUTO) 12 % (0-12); NEUTROPHILS # (AUTO) 3.2 10^3/uL (1.8-7.8); NEUTROPHILS % (AUTO) 61 % (42-75); PLATELET COUNT 162 10^3/uL (130-400); WHITE BLOOD COUNT 5.2 10^3/uL (4.3-11.0)
[2020-10-02 19:09] LABS: INR 0.9 (0.8-1.4); PROTHROMBIN TIME PATIENT 12.9 SEC (12.2-14.7)
[2020-10-02 19:19] LABS: ALANINE AMINOTRANSFERASE 132 U/L (0-55); ALBUMIN 4.2 GM/DL (3.2-4.5); ALKALINE PHOSPHATASE 86 U/L (40-136); BILIRUBIN,TOTAL 0.8 MG/DL (0.1-1.0); BUN/CREATININE RATIO 16; CALCIUM 8.9 MG/DL (8.5-10.1); CARBON DIOXIDE 22 MMOL/L (21-32); CHLORIDE 107 MMOL/L (98-107); CREATININE SERUM 0.91 MG/DL (0.60-1.30); GFR ESTIMATED > 60; GLUCOSE 95 MG/DL (70-105); MAGNESIUM 1.9 MG/DL (1.6-2.4); POTASSIUM 3.8 MMOL/L (3.6-5.0); SODIUM 141 MMOL/L (135-145)
--- NOTE | 2020-10-02 19:31 | Diagnostic Imaging Report ---
Portable erect AP chest at 703 hours. INDICATION: Palpitations. There are no prior studies available for comparison. FINDINGS: The heart size is within normal limits. The perihilar markings are somewhat prominent but there is no evidence for failure, pneumonia or for pleural effusion. The mediastinum is not widened. The osseous structures are intact. IMPRESSION: There is no evidence for active disease. Dictated by: Dictated on workstation # [id number]
[2020-10-02] MEDS ORDERED: METO-351 PO (19:47)
[2020-10-02 19:50] VITALS: BP 153/77
== END 2020-10-02 19:53 | disposition home or self-care (01) ==
LOC: EDUNIT# 18:11 → ER 18:13
DX: R00.8 Other abnormalities of heart beat (principal)
CPT/HCPCS: 71045; 80053; 83735; 83880; 84443; 84481; 84484; 85025; 85610; 93005; 99284; G0480; 36415; 80320

== ENCOUNTER → 2020-10-17 | Outpatient (CLI) | payer BC ==
[~2020-10-17] MED LIST changes: +METO-351 PO
[2020-10-17 14:26] VITALS: BP 133/85
--- NOTE | 2020-10-17 14:26 | Cardiology Stress Test Report ---
Stress Test Report Date of Procedure/Referring: Date of Procedure: Oct 17, 2020 PCP Bailey Cristobal Admitting Physician No,Local Physician Indications: Chest pain Baseline Heart Rate: 62 Baseline Blood Pressure: Blood Pressure Systolic: 133 Blood Pressure Diastolic: 85 Baseline EKG: Baseline EKG: normal sinus rhythm Summary/Conclusion: Summary: In summary, the patient started exercising with a baseline heart rate, blood pressure and EKG mentioned above Patient was able to exercise for a total of 10minutes on Mik protocol, METs 11.7 Maximum heart rate 153 Maximum blood pressure 191/78 Stress EKG, Minimal nondiagnostic changes Recovery EKG , Return to baseline Conclusion: 1. Good exercise tolerance for a total of 10 minutes on Mik protocol, 11.7 METs, achieving 87 percent of maximum expected heart rate 2. Minimal nondiagnostic EKG changes with exercise returned to baseline during recovery 3. No arrhythmia was noted SHOBHA VILLANUEVA MD Oct 17, 2020 14:26
== END ==
LOC: CARD 10:12
PROVIDERS: ATTEND Physician Assistant
DX: I49.3 Ventricular premature depolarization (principal)
CPT/HCPCS: 93017; 93306

== ENCOUNTER 2020-12-06 12:51 | Outpatient (CLI) | payer BC | END 2020-12-06 13:30 | disposition home or self-care (01) | LOC: SLEEP 12:51 | PROVIDERS: ATTEND Internal Medicine Cardiovascular Disease | DX: G47.33 Obstructive sleep apnea (adult) (pediatric) (principal) | CPT/HCPCS: G0399 ==

== ENCOUNTER → 2022-09-19 | Outpatient (CLI) | payer BC ==
[2022-09-19 09:44] LABS: ABSOLUTE RETIC # 64 10e9/uL (24-90); BASOPHILS % (AUTO) 1 % (0-10); EOSINOPHILS # (AUTO) 0.1 10^3/uL (0.0-0.3); EOSINOPHILS % (AUTO) 2 % (0-10); HEMATOCRIT 51 % (40-54); HEMOGLOBIN 17.6 g/dL (13.3-17.7); LYMPHOCYTES # (AUTO) 1.2 10^3/uL (1.0-4.0); LYMPHOCYTES % (AUTO) 31 % (12-44); MEAN CORPUSCULAR HEMOGLOBIN 32 pg (25-34); MEAN CORPUSCULAR HGB CONC 34 g/dL (32-36); MEAN CORPUSCULAR VOLUME 93 fL (80-99); MEAN PLATELET VOLUME 10.8 fL (9.0-12.2); MONOCYTES # (AUTO) 0.7 10^3/uL (0.0-1.0); MONOCYTES % (AUTO) 17 % (0-12); NEUTROPHILS % (AUTO) 49 % (42-75); PLATELET COUNT 156 10^3/uL (130-400); RETICULOCYTE % 1.15 % (0.50-2.40)
[2022-09-19 10:35] LABS: BAND NEUTROPHILS 0 %; BASOPHILS % (MANUAL) 0 %; EOSINOPHILS % (MANUAL) 2 %; LYMPHOCYTES % (MANUAL) 33 %; MONOCYTES % (MANUAL) 21 %; NEUTROPHILS % (MANUAL) 44 %; RBC MORPH NORMAL
== END ==
LOC: LAB 09:15
PROVIDERS: ATTEND Nurse Practitioner Family
DX: D72.819 Decreased white blood cell count, unspecified (principal)
CPT/HCPCS: 36415; 85007; 85027; 85045; 85055

== ENCOUNTER 2022-09-23 15:31 | Outpatient (RCR) | payer BC ==
[2022-09-19 09:46] LABS: BASOPHILS % (AUTO) 1 % (0-10); EOSINOPHILS # (AUTO) 0.1 10^3/uL (0.0-0.3); EOSINOPHILS % (AUTO) 2 % (0-10); LYMPHOCYTES # (AUTO) 1.2 10^3/uL (1.0-4.0); LYMPHOCYTES % (AUTO) 31 % (12-44); MEAN CORPUSCULAR HEMOGLOBIN 32 pg (25-34); MEAN CORPUSCULAR HGB CONC 34 g/dL (32-36); MEAN CORPUSCULAR VOLUME 93 fL (80-99); MONOCYTES % (AUTO) 17 % (0-12); NEUTROPHILS % (AUTO) 49 % (42-75)
[2022-09-19 09:51] LABS: HEMATOCRIT 51 % (40-54); HEMOGLOBIN 17.6 g/dL (13.3-17.7)
[2022-09-19 09:52] LABS: MEAN PLATELET VOLUME 10.8 fL (9.0-12.2); MONOCYTES # (AUTO) 0.7 10^3/uL (0.0-1.0); PLATELET COUNT 156 10^3/uL (130-400)
== END 2022-10-08 | disposition home or self-care (01) ==
LOC: ONC 15:31
PROVIDERS: ATTEND Internal Medicine Hematology & Oncology
DX: D70.9 Neutropenia, unspecified (principal); I10 Essential (primary) hypertension
CPT/HCPCS: 82607; 82746; 85025; 99204; 99213

== ENCOUNTER → 2022-12-24 | Outpatient (CLI) | payer BC ==
[2022-12-24 11:21] VITALS: BP 153/85
== END ==
LOC: CARD 10:59
PROVIDERS: ATTEND Internal Medicine Cardiovascular Disease
DX: I10 Essential (primary) hypertension (principal)